=== PATIENT | male | born 1970 | race Caucasian/White ===

== ENCOUNTER → 2021-01-14 15:48 | Outpatient (CLI) | payer OTHER, SELFPAY ==
--- NOTE | ~2021-01-14 | XR_ITS ---
EXAMINATION: XR hand RT min 3V DATE: 01/14/2021 16:19 INDICATION: Displaced fracture of proximal phalanx of right index finger. TECHNIQUE: 3 views of right hand were obtained. COMPARISON: None. FINDINGS: Bone alignment is normal. No fracture. There is mild osteoarthritis of first carpometacarpa l joint, second metacarpophalangeal joint, and some of the interphalangeal joints. There is moderate osteoarthritis of third metacarpophalangeal joint and second distal interphalangeal joint. IMPRESSION: 1. Polyarticular osteoarthritis. Reviewed, dictated and finalized at location A.
== END ==
PROVIDERS: Visit Provider Plastic Surgery
DX: S62.610A Displaced fracture of proximal phalanx of right index finger, initial encounter for closed fracture (principal); M19.041 Primary osteoarthritis, right hand
CPT/HCPCS: 73130

== ENCOUNTER 2023-09-06 08:02 | Emergency (ER) | payer OTHER, SELFPAY ==
--- NOTE | ~2023-09-06 | XR_ITS ---
XR knee RT 3V DATE: 09/06/2023 08:50 INDICATION: Twisting injury 2 weeks ago; medial knee pain. TECHNIQUE: Dewitt and AP and lateral views COMPARISON: None FINDINGS: Bipartite patella. No fracture or dislocation or joint effusion. No periosteal reaction or bone destruction. There is mild loss of joint space and periarticular spurring at the medial compartment. There is mild periarticular spurring at the patellofemoral joint. Lateral compartment joint space is well preserve d. No radiopaque intra-articular loose body or chondrocalcinosis. IMPRESSION: Mild to moderate osteoarthritis at the medial and patellofemoral compartments Bipartite patella Reviewed, dictated and finalized at location D. HOUSE TENDER IMPRESSION: Mild to moderate osteoarthritis at the medial and patellofemoral co mpartments Bipartite patella
[2023-09-06 08:29] VITALS: BP 156/103; PULSE 101; RESP 18; TEMP 36.2; O2SAT 100
--- NOTE | 2023-09-06 08:50 | ED.LOWEXIN ---
HPI - Extremity Injury (Lower) General Chief Complaint: Extremity Injury, Lower Stated Complaint: rt knee pain Time Seen by Provider: 09/06/23 08:50 Source: patient, RN notes reviewed and old records reviewed Mode of arrival: ambulatory Limitations: no limitations History of Present Illness HPI Narrative: 53 year old male presents to [facility] care with complaints of right knee pain medial aspect which radiates to below his knee for the past 2-3 weeks duration. Patient reports that he has repetitive twisting motion to his knee at work and has noted swelling to right knee as day progresses with pressure sensation also to posterior knee. MD complaint: knee injury (right) Onset (ago): week(s) (2-3) Type of Injury: other (twisting type of motion) Severity scale (1-10): 2 Exacerbating factors: other (standing bending) Treatments prior to arrival: cold therapy Related Data Allergies Allergy/AdvReac Type Severity Reaction Status Date / Time No Known Allergies Allergy Verified 09/06/23 08:30 Review of Systems Review of Systems: CONSTITUTIONAL: Denies fever, chills, or sweats. EYES: Denies visual changes, redness, or discharge. ENT: Denies rhinorrhea, congestion, sore throat, or otalgia. CARDIOVASCULAR: Denies chest pain, palpitations, or edema. RESPIRATORY: Denies cough or dyspnea. GASTROINTESTINAL: Denies abdominal pain, nausea, vomiting, or diarrhea. GENITOURINARY: Denies dysuria or hematuria. SKIN: Denies rash or itching. MUSCULOSKELETAL: Denies back pain,positive for medial right knee pain with pain under knee cap, or myalgia. NEUROLOGIC: Denies headache, numbness, or weakness. PSYCHIATRIC: Denies anxiety or depression. All systems reviewed & are unremarkable except as noted in HPI and below PMFSH Past Medical History Medical History (Updated 09/06/23 @ 12:39 by Kira Zhao NP) Back pain Family History Family History Father Hypertension Cerebrovascular accident, Onset Age: 66 Malignant neoplasm of prostate, Onset Age: 65 Grandparent Family history of cardiovascular disease Sibling Family history of malignant neoplasm Social History Social History (Updated 09/06/23 @ 12:38 by Kira Zhao NP) Smoking status: Never smoker Alcohol intake: current Substance use: never Living arrangements: with family Gender identity (if verbalized by the patient): Male Comments At time of signature, agree with nursing past medical, surgical, social and family history. There is no relevant family history pertinent to the presenting complaint Exam Narrative: GENERAL: Well-appearing, well-nourished, and in no acute distress. HEAD: Normocephalic, atraumatic. EYES: PERRLA and EOMI. ENT: Nares clear, no rhinorrhea or epistaxis. Mucous membranes moist.TM's normal throat pink with no swelling NECK: Supple. no lymphadenopathy CHEST: Clear to auscultation. No respiratory distress.SAO2 100% on room air HEART: Regular rate and rhythm. No murmur heard. Normal peripheral pulses. ABDOMEN: Soft, nontender, nondistended, normal active bowel sounds. EXTREMITIES: Normal range of motion. No edema.Exception noted to right knee if pain upon palpation to medial aspect with some swelling noted, reports fullness feeling to posterior aspect of right knee with some radiation of pain to area below medial knee cap region, denies any tingling or numbness of right leg or foot, strong pedal pulse present. positive valgus test. SKIN: Warm, dry, no rash. NEURO: No focal deficits. Alert and oriented x3. Course Course Emergency Course: Patient is aware of diagnosis, understands and agrees to treatment plan.? Anticipatory guidance given.? Patient agrees to follow-up as directed and is aware of reasons to seek care at the emergency department. Portions of this record may have been created with voice recognition software Level of Care: Express Care Visit Vital Signs Vital signs
== END 2023-09-06 09:19 | disposition home or self-care (01) ==
PROVIDERS: Emergency Provider Registered Nurse
DX: M25.561 Pain in right knee (principal)
CPT/HCPCS: 73562; 99213; G0463

== ENCOUNTER → 2023-09-19 13:28 | Outpatient (CLI) | payer OTHER, SELFPAY ==
--- NOTE | ~2023-09-19 | MR_ITS ---
EXAMINATION: MR knee RT wo con DATE: 09/19/2023 14:02 INDICATION: Medial meniscal tear with medial right knee pain and swelling post twisting injury one mo nth prior. TECHNIQUE: Magnetic resonance imaging (MRI) of the right knee was performed without intravenous contr ast. Sequences included coronal PD-weighted FSE, coronal PD-weighted FS FSE, sagittal T2-weighted FS E, sagittal PD-weighted FS FSE and axial PD weighted fat saturated FSE. COMPARISON: None. FINDINGS: Medial compartment: Complex tear of the body and posterior horn of the medial meniscus. Extensive partial thickness carti zeenat loss with deep chondral fissuring and underlying cortical irregularity, small central subchondra l osteophytes related subarticular edema-like and cystlike changes along the anterior to posterior we ightbearing medial femoral condyle and with subarticular edema-like signal change along the medial ma rgin of the medial tibial plateau. Lateral compartment: Lateral meniscus is normal. Articular cartilage is normal. Patellofemoral compartment: There is a bipartite patella with fluid tracking between the main portion of the patella and a separa te ossicle comprising the lateral margin of the patella.. This extends more caudally than atypical de velopmental bipartite patella and differential would also include a chronic nonunited fracture. There is deep chondral fissuring with mild subarticular edema-like signal change along the patellar apical ridge. Additional full thickness chondral fissuring involving greater than 50% the cartilage thickne ss but without degenerative subchondral changes at the medial patellar facet. There is deep chondral ulceration at the lateral patellar facet extending along both sides of the sagittal oriented cleft be tween the 2 components of the patella. There is also linear fluid signal consistent with delaminating tear extending medially and laterally along the bone chondral interface along both sides of the sagi ttal oriented cleft between the patellar components. There is a deep chondral defect extending horizo ntally across the inferior aspect of the medial trochlea without underlying degenerative subchondral changes. Partial-thickness chondral fissure at the inferomedial aspect of the lateral facet. Ligaments and tendons: Anterior and posterior cruciate ligaments are normal. The medial collateral ligament and fibular pipo ateral ligament complex are normal. The extensor mechanism is normal. The visualized medial and later al hamstring tendons as well as the iliotibial band are normal. Fluid: Small right knee joint effusion. Irrigon 8 x 3 x 2 mm intermediate signal intensity filling defect wit hin a moderate-sized Morales's cyst suggesting a loose chondral fragment. There are couple additional m ore typical appearing <5 mm ovoid low signal intensity loose osteochondral bodies more caudally in th e Morales's cyst. No intra-articular loose osteochondral bodies identified. Osseous/other: No acute fracture or pathologic marrow replacing process. IMPRESSION: 1. Complex medial meniscal tear. 2. Mild to moderate osteoarthritis with extensive high-grade chondromalacia in the medial compartment . 3. 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 4. Mild patellofemoral osteoarthritis with high-grade patellar and moderate grade trochlear chondroma lacia. 5. Small right knee joint effusion and moderate-sized Morales's cyst, the latter with possible loose ch ondral fragment and a couple additional likely chronic loose osteochondral bodies. Reviewed, dictated and finalized at location B. O GAME ANIMATOR
== END ==
PROVIDERS: PCP Orthopaedic Surgery; Visit Provider Orthopaedic Surgery
DX: S83.241A Other tear of medial meniscus, current injury, right knee, initial encounter (principal); M17.11 Unilateral primary osteoarthritis, right knee; M94.261 Chondromalacia, right knee; M25.461 Effusion, right knee; M71.21 Synovial cyst of popliteal space [Baker], right knee; X50.0XXA Overexertion from strenuous movement or load, initial encounter
CPT/HCPCS: 73721

== ENCOUNTER 2023-09-28 13:55 | Outpatient (CLI) | payer OTHER, SELFPAY ==
--- NOTE | ~2023-09-28 | XR_ITS ---
EXAMINATION: XR knee RT min 4V DATE: 09/28/2023 14:14 INDICATION: Medial meniscus tear TECHNIQUE: Four views of the right knee were obtained. COMPARISON: 09/06/2023; MRI, 09/19/2023 FINDINGS: Alignment is normal. No fracture or osteochondral lesion. There is mild to moderate osteoar thritis of the medial compartment and mild osteoarthritis of the patellofemoral compartment. A bipart ite patella is again noted. No joint effusion/synovitis. Soft tissues are unremarkable. IMPRESSION: 1. Osteoarthritis without acute osseous abnormality. Reviewed, dictated and finalized at location B. NILE JUSTICE SPECIALIST
== END 2023-09-28 13:56 | disposition home or self-care (01) ==
PROVIDERS: PCP Orthopaedic Surgery; Visit Provider Orthopaedic Surgery
DX: M17.11 Unilateral primary osteoarthritis, right knee (principal); S83.241A Other tear of medial meniscus, current injury, right knee, initial encounter; X58.XXXA Exposure to other specified factors, initial encounter
CPT/HCPCS: 73564

== ENCOUNTER 2023-11-27 00:30 | Day surgery (SDC) | payer OTHER, SELFPAY ==
[2023-11-21 11:14] VITALS: BMI 28.7
--- NOTE | 2023-11-21 11:15 | PC.NURSE ---
Report to the Outpatient Waiting Room, entrance under the green pavilion located off [facility], at time _1130_ on date _[id number]_. Planned Procedure Time: _130pm_. Time changes happen often and if your time is changed the preop area will call you the afternoon before. - You and your visitor will be asked to self-screen and do not enter if you have any COVID symptoms. - A mask is optional within the hospital at this time. Patients may have clear liquids (water, carbonated beverages, clear teas, apple juice) until 3 hours prior to surgery with a maximum of 20 ounces. - No food from midnight until time of surgery Take the following medications with a SIP of water the morning of surgery: ___None DO NOT STOP ANY OF YOUR OTHER PRESCRIPTION MEDICATIONS PRIOR TO SURGERY ?EXCEPT THE FOLLOWING Medications to discontinue per physician __Has not used and instructed not to start using Diclofenac topical._ Date to take last dose Please no make-up, nail danish, hairspray, perfume, deodorant, or body powder the day of surgery. No jewelry (including any body piercings) or valuables the day of surgery, leave them at home. Please take a shower or bath the night before, or the morning of, surgery with an antibacterial soap. Wear comfortable, loose fitting clothing. - Jewelry must be removed prior to entering the operating room. Rings and piercings that are not removed may be cut off. - The hospital will not accept responsibility for valuables. - Please leave all valuables, including medications, at home the day of surgery. If you are going home after surgery, a licensed frontload driver must drive you home. - NO public transportation without another adult if you receive anesthesia. - We recommend that an adult stay with you for 24 hours following discharge. - We also recommend that you do not drive, make important decision, drink alcoholic beverages, or take any drugs that were not prescribed by your health care provider for at least 24 hours after your discharge time. Follow any additional instructions given to you from your surgeon. If you or anyone in your household have experienced Covid symptoms in the past week, please notify your surgeon or the nurse liaison at the phone number below for possible testing. Telephone instructions given to __Brett___and asked if any additional questions and then verbalized understanding. Patient advised to call surgeon office or pre surgery nurse liaison [phone] if any additional questions.
--- NOTE | 2023-11-27 09:34 | WPDHPUPDATE1 ---
History and Physical Update Update Date/Time: 11/27/23 09:34 History and Physical has been reviewed, including an updated exam of the patient. There are NO changes in the patient's condition. Risks, benefits, and alternatives have been discussed and questions answered. Patient agrees to proceed with procedure. Right knee arthroscopic partial medial meniscectomy.
[2023-11-27] MEDS: ACETAMINOPHEN 500 MG TABLET 1000 MG PO (11:16)
[2023-11-27] MEDS: LACTATED RINGERS 1,000 ML 30 ML IV CONT (11:23)
[2023-11-27] MEDS: KETOROLAC 15 MG/ML VIAL (*BKC) IV PUSH (11:32)
[2023-11-27 11:37] VITALS: BP 158/94; PULSE 71; RESP 16; TEMP 36.4; O2SAT 100
--- NOTE | 2023-11-27 12:32 | P.PNAN_ITS ---
Anes - Initial Pre Proc Eval Procedure: Operation Date: 11/27/23 13:30 Proposed Procedures p Right Knee Arthroscopic Partial Medial Meniscectomy - John Aguilar MD Date/Time: 11/27/23 12:32 Surgeon: John Aguilar MD Pre Op Diagnosis: right knee medial meniscus tear Patient Data Age: 53 Gender: M Height: 1.78 m Weight: 93.25 kg Last Vital Signs Temp 36.4 C 11/27/23 11:37 Pulse 71 11/27/23 11:37 Resp 16 11/27/23 11:37 BP 158/94 H 11/27/23 11:37 Pulse Ox 100 11/27/23 11:37 O2 Del Method Room Air 11/27/23 11:37 Allergies Allergy/AdvReac Type Severity Reaction Status Date / Time No Known Allergies Allergy Verified 11/21/23 11:51 Home Medications Medication Instructions Recorded Confirmed Type diclofenac sodium 1 % topical gel 2 g topical QID #100 grams 09/06/23 11/27/23 Rx (Aleve (diclofenac)) hydrocodone 5 mg-acetaminophen 325 1 - 2 tablet PO Q4-6H PRN pain #30 11/27/23 Rx mg tablet tabs Patient hx anesthesia problems: none Family hx anesthesia problems: none Results Review: All pre-operative results and documents have been reviewed as part of the pre- operative evaluation. [facility] Past Medical History Medical History Back pain Surgical History Surgical History History of fusion of cervical spine Family History Family History Father Hypertension Cerebrovascular accident, Onset Age: 66 Malignant neoplasm of prostate, Onset Age: 65 Grandparent Family history of cardiovascular disease Sibling Family history of malignant neoplasm Social History Social History Smoking status: Never smoker Alcohol intake: current Drinks per week: 6 Substance use: never Do You Feel Safe in your Home?: Yes Lack of Transportation: No Lack of Food: Never True Current Housing: I Have Housing Concerned About Future Housing: No Difficulty Paying Gas/Electric Bills: No Difficulty Paying for Meds: No Currently Unemployed: No Education: High School Diploma/GED Difficulty w/ Childcare or Family Care: No Living arrangements: with family Gender identity (if verbalized by the patient): Male Spiritual care concerns: No Anes - Eval Final PreProcedure Day of Procedure 11/27/23 12:32 Patient weight: overweight Heart: regular rate and rhythm Lungs: clear to auscultation Airway: Mallampati scale class II Neurological: alert and oriented Last oral intake: >/= 8 hours ASA classification: II Emergent: no Anesthetic plan: proceed Anesthesia type and monitoring: general LMA and standard monitoring Results Review: All pre-operative results and documents have been reviewed as part of the pre- operative evaluation. Informed Consent: The patient's anesthetic plan and its attendant risks and benefits were discussed with the patient/family/POA. Questions were solicited and answers provided to the satisfaction of the patient/family/POA.
[2023-11-27] MEDS: ceFAZolin 2 GM/D5W 50 ML 2 GM/50 ML BAG IVPB (12:49)
[2023-11-27] MEDS: BUPIVACAINE/EPINEPHRINE 0.5% 50 ML VIAL 20 ML INFILTRATE (13:30)
[2023-11-27 13:45] VITALS: BP 135/92; PULSE 81; RESP 15; TEMP 36.1; O2SAT 100
[2023-11-27 14:00] VITALS: BP 145/93; PULSE 66; RESP 14; O2SAT 100
--- NOTE | 2023-11-27 14:01 | P.OP_ITS ---
Procedure Note - Detailed Date of Procedure 11/27/23 Pre-op Diagnosis Right knee medial meniscus tear Post-op Diagnosis Same Procedure Performed Arthroscopic partial medial meniscectomy, right knee. Surgeon John Aguilar MD Anesthesia General Findings Complex posterior horn medial meniscus tear. Large chondral defect on the posterior aspect of the medial femoral condyle. Not amenable to microfracture due to thin peripheral cartilage and large uncontained defect size. Lateral compartment normal. Patella with minimal chondromalacia. ACL intact. Tibia with mild chondromalacia centrally but small focal areas exposed bone at the medial aspect of compartment under the meniscus and to a lesser extent at the posterior aspect of the compartment. Description of Procedure The patient was identified and the surgical site confirmed and signed in the pre operative holding area. Antibiotics were started per protocol, and the patient was brought to the operative room and transferred to the OR table. A general anesthetic was administered. Supine position with the operative lower extremity position in the leg galeas after placement of a well padded tourniquet. The leg support was lowered and the contralateral limb was supported with a soft bolster. The knee was prepped and draped in the usual sterile fashion. A time- out was performed. The portal sites were marked and infiltrated with 0.5% Marcaine 20 mL. The limb was exsanguinated and the tourniquet inflated to 300 mL Hg. Standard inferolateral and inferomedial portals were established. Inflow was obtained with the saline pump. The camera was introduced. Diagnostic inspection of the joint was accomplished. Extensive tearing of the posterior horn of the medial meniscus with unstable flaps. The meniscus was debrided with the arthroscopic shaver and punches until stable. Subtotal meniscectomy performed posteriorly. Tapering of the meniscus to the medial aspect was performed to ensure a stable rim. The radiofrequency probe was also used for further d?bridement. Gentle chondroplasty was performed on the posterior medial femoral condyle chondral defect. The edges were sealed with the radiofrequency probe. The bone was stable. The arthroscopic instruments were removed. The tourniquet released and wounds closed with subcutaneous 4-0 Monocryl absorbable suture. Steri strips and a sterile dressing were applied. A light elastic wrap was placed. The patient was extubated and brought to the recovery room in stable condition. Estimated Blood Loss 5 Drains No Complications No immediate complications Condition Stable Disposition PACU [facility] Billing Surgery - Charge Forward: Surgery Billing
[2023-11-27 14:15] VITALS: BP 133/92; PULSE 67; RESP 13; O2SAT 99
[2023-11-27 14:20] VITALS: BP 135/88; PULSE 72; RESP 14
[2023-11-27 14:50] VITALS: BP 133/75; PULSE 69; RESP 14
== END 2023-11-27 14:55 | disposition home or self-care (01) ==
PROVIDERS: Visit Provider Orthopaedic Surgery
PROC: (CPT 29870; principal; 2023-11-27 13:30)
DX: S83.231A Complex tear of medial meniscus, current injury, right knee, initial encounter (principal); M22.41 Chondromalacia patellae, right knee; X50.0XXA Overexertion from strenuous movement or load, initial encounter; Z98.1 Arthrodesis status
CPT/HCPCS: 29881; A9270; J0690; J1100; J1885; J2250; J2405; J2704; J3010; J7120

== ENCOUNTER 2024-09-11 11:40 | Outpatient (CLI) | payer OTHER, SELFPAY ==
--- OUTSIDE RECORDS SUMMARY | 2024-09-11 11:59 | XMS_ITS | Clinical Summary ---
Author Organization [facility] Address [address] [place] [id number] Care Team Providers Care Sand Buffer Name Role Phone Unavailable Primary Care Provider Unavailabl e Social History Tobacco Use Types Packs/Day Years Used Date Smoking Tobacco: Never Assessed Sex and Gender Information Value Date Recorded Sex Assigned at Not on file Legal Sex Male 5:04 PM CDT Gender Identity Not on file Sexual Orientation Not on file Plan of Treatment Health Maintenance Due Date Last Done Comments Colorectal Cancer Screening Colonoscopy (10 Years) 1969 Annual Physical 1972 Hepatitis C 1987 DTaP, Tdap and Td Vaccines ( 1 - Tdap) 1988 Hepatitis B Vaccines (1 of 3 - 19+ 3-dose series) 1988 Zoster Vaccines (1 of 2) 2019 COVID-19 Vaccine (2023-2 5 season) 2024 Influenza Adult (#1) 2024 Meningococcal B Vaccine Aged Out No l onger eligible based on patient's age to complete this topic Meningococcal Vaccine Aged Out No janelle dimitri eligible based on patient's age to complete this topic Pneumococcal Vaccine: Pediat rics (0 to 5 Years) and At-Risk Patients (6 to 64 Years) Aged Out No longer eligible b ased on patient's age to complete this topic RSV Immunizations Under 20 Months Aged Out No longer eligible based on patient's age to complete this topic
--- OUTSIDE RECORDS SUMMARY | 2024-09-11 11:59 | XMS_ITS | Referral Summary ---
Author Organization [email or web address] Address [address] [place] [address] Care Team Providers Care Weighmaster Name Role Phone Unavailable Primary Care Provider Unavailabl e Source Comments [email or web address],non-owned Affiliates and Associated Physician Practices is amultiple site organization consisting of ambulatory clinics and hospital sitesin [place], [place], [place] and [place]. This disclosure is being madepursuant to the Care Everywhere program and may not contain all information available regarding this patient. Last updated 18.[employer] Allergies No known active allergies Medications * Be aware that medications may not be up to date on this document. Alwaysverify current medications with the patient. Medication Sig Dispensed Refills Start Date End Date Status benzonatate (TESSALON) 200 MG capsule Take 1 capsule by mouth 3 times daily as needed for Cough 30 capsule 08/11/2019 Active Social History Tobacco Use Types Packs/Day Years Used Date Smoking Tobacco: Never Smokeless Tobacco: Never Sex and Gender Information Value Date Recorded Sex Assigned at Not on file Gender Identity Not on file Sexual Orientation Not on file Last Filed Vital Signs Vital Sign Reading Time Taken Comments Blood Pressure 130/82 08/11/2019 11:44 AM CHILD CARE CENTER ASSISTANT DIRECTOR Pulse 99 08/11/2019 11:25 AM CHILD CARE CENTER ASSISTANT DIRECTOR Temperature 37.1 C (98.7 F) 08/11/2019 11:25 AM CHILD CARE CENTER ASSISTANT DIRECTOR Respiratory Rate 16 08/11/2019 11:25 AM CHILD CARE CENTER ASSISTANT DIRECTOR Oxygen Saturation 96% 08/11/2019 11:25 AM CHILD CARE CENTER ASSISTANT DIRECTOR Inhaled Oxygen Concentration - - Weight 90.7 kg (200 lb) 08/11/2019 11:25 AM CHILD CARE CENTER ASSISTANT DIRECTOR Height 177.8 cm (5' 10 ) 08/11/2019 11:25 AM CHILD CARE CENTER ASSISTANT DIRECTOR Body Mass Index 28.7 08/11/2019 11:25 AM CHILD CARE CENTER ASSISTANT DIRECTOR Plan of Treatment Not on file
--- OUTSIDE RECORDS SUMMARY | 2024-09-11 11:59 | XMS_ITS | Patient Health Summary ---
Author Organization [facility] Address [address] [place] [address] Care Team Providers Care Carbon Sequestration Plant Operator Name Role Phone Unavailable Primary Care Provider Unavailabl e Note from [facility],non-owned Affiliates and Associated Physician Practices is amultiple site organization consisting of ambulatory clinics and hospital sitesin [place], [place], [place] and [place]. This disclosure is being madepursuant to the Care Everywhere program and may not contain all information available regarding this patient. Last updated 18.[employer] Allergies No known active allergies Medications * Be aware that medications may not be up to date on this document. Alwaysverify current medications with the patient. * benzonatate (TESSALON) 200 MG capsule(Started 08/11/2019) Take 1 capsule by mouth 3 times daily as needed for Cough Social History Tobacco Use Types Packs/Day Years Used Date Smoking Tobacco: Never Smokeless Tobacco: Never Sex and Gender Information Value Date Recorded Sex Assigned at Not on file Gender Identity Not on file Sexual Orientation Not on file Last Filed Vital Signs Vital Sign Reading Time Taken Comments Blood Pressure 130/82 08/11/2019 11:44 AM COOK BOX FILLER Pulse 99 08/11/2019 11:25 AM COOK BOX FILLER Temperature 37.1 C (98.7 F) 08/11/2019 11:25 AM COOK BOX FILLER Respiratory Rate 16 08/11/2019 11:25 AM COOK BOX FILLER Oxygen Saturation 96% 08/11/2019 11:25 AM COOK BOX FILLER Inhaled Oxygen Concentration - - Weight 90.7 kg (200 lb) 08/11/2019 11:25 AM COOK BOX FILLER Height 177.8 cm (5' 10 ) 08/11/2019 11:25 AM COOK BOX FILLER Body Mass Index 28.7 08/11/2019 11:25 AM COOK BOX FILLER
--- OUTSIDE RECORDS SUMMARY | 2024-09-11 11:59 | XMS_ITS | Clinical Summary ---
Author Organization [facility] Address [address] [place] [address] Care Team Providers Care Terminal Clerk Name Role Phone Unavailable Primary Care Provider Unavailabl e Source Comments [facility],non-owned Affiliates and Associated Physician Practices is amultiple site organization consisting of ambulatory clinics and hospital sitesin [place], [place], [place] and [place]. This disclosure is being madepursuant to the Care Everywhere program and may not contain all information available regarding this patient. Last updated 18.[employer] Allergies No known active allergies Medications * [...] Comments Blood Pressure 130/82 08/11/2019 11:44 AM DEBRANDER Pulse 99 08/11/2019 11:25 AM DEBRANDER Temperature 37.1 C (98.7 F) 08/11/2019 11:25 AM DEBRANDER Respiratory Rate 16 08/11/2019 11:25 AM DEBRANDER Oxygen Saturation 96% 08/11/2019 11:25 AM DEBRANDER Inhaled Oxygen Concentration - - Weight 90.7 kg (200 lb) 08/11/2019 11:25 AM DEBRANDER Height 177.8 cm (5' 10 ) 08/11/2019 11:25 AM DEBRANDER Body Mass Index 28.7 08/11/2019 11:25 AM DEBRANDER Plan of Treatment Health Maintenance Due Date Last Done Comments COLOGUARD (AGES 45-75) - COL ON CA SCREENING 1969 COLON MONITORING 1969 COLONOSCOPY - COLON CA SCREENING 1969 CT COLONOGRAPHY - COLON CA SCREENING 1969 Colorectal Cancer Screening 1969 FIT - COLON CA SCREENING 1969 FLEX SIG - COLON CA SCREENING 1969 LIPID TESTING 1969 HIV SCREENING 1984 HEPATITIS C SCREENING 05/28/1987 DTAP/TDAP/TD VACCINES (1 - Tdap) 1988 HEPATITIS B VACCINE (1 of 3 - 19+ 3-dose series) 1988 PNEUMOCOCCAL VACCINE 50+ (1 of 1 - PCV) 2019 ZOSTER VACCINE (1 of 2) 2019 SCREENING FOR DIABETES 08/11/2019 COVID-19 VACCINE (1 - 2023-2 5 season) 2024 INFLUENZA VACCINE (#1) 2024 DEPRESSION SCREENING 07/23/2024 HIB VACCINE Aged Out No longer eligi ble based on patient's age to complete this topic HPV VACCINE Aged Out No longer eligi ble based on patient's age to complete this topic MENINGOCOCCAL (Group B) VACCINE Aged Out No longer eligible based on patient's age to complete this topic MENINGOCOCCAL VACCINE Aged Out No janelle dimitri eligible based on patient's age to complete this topic PNEUMOCOCCAL VACCINE Aged Out No long er eligible based on patient's age to complete this topic
--- NOTE | 2024-09-11 12:41 | ECG_ITS ---
Test Date: 2024-09-11 12:49:34 Measurements Intervals [place] Rate: 68 P: 57 ME: 143 QRS: 12 QRSD: 108 T: 1 QT: 352 QTc: 377 Interpretive Statements SINUS RHYTHM DELAYED PRECORDIAL R/S TRANSITION BORDERLINE ST-T WAVE ABNORMALITY- INFERIOR LEADS BORDERLINE ECG No previous ECG available for comparison Electronically Signed On 09-11-2024 12:51:41 GATEKEEPER by Gary Denton D.O.
[2024-09-11 13:08] LABS: Basophils Percent Auto 0.7 % (0.2-1.2); Eosinophils Absolute Auto 0.1 K/mm3 (0-0.3); Eosinophils Percent Auto 2.2 % (0-4.4); Hematocrit 44.3 % (42.0-52.0); Hemoglobin 15.2 g/dL (14.0-18.0); Immature Granulocyte Absolute 0.01 K/mm3 (0.00-0.031); Immature Granulocyte Percent A 0.2 % (0-0.5); Lymphocytes Absolute Auto 1.24 K/mm3 (0.9-3.2); Lymphocytes Percent Auto 23.2 % (18.3-44.2); Mean Corpuscular HGB Conc 34.3 g/dl (32-36); Mean Corpuscular Hemoglobin 32.4 pg (26-34); Mean Corpuscular Volume 94.5 fl (80-100); Mean Platelet Volume 11.8 fl (7.4-10.4); Monocytes Absolute Auto 0.5 K/mm3 (0.1-0.6); Monocytes Percent Auto 10.1 % (2.6-8.5); Neutrophils Absolute Auto 3.4 K/mm3 (1.3-6.7); Neutrophils Percent Auto 63.6 % (45.5-73.1); Platelet Count Result 211 k/mm3 (150-375); Red Blood Count 4.69 M/mm3 (4.6-6.20); Red Cell Distribution Width 11.9 % (11.5-14.5); White Blood Count 5.3 K/mm3 (4.5-10.0)
== END 2024-09-11 11:41 | disposition home or self-care (01) ==
PROVIDERS: Visit Provider Orthopaedic Surgery
DX: Z01.818 Encounter for other preprocedural examination (principal); M17.11 Unilateral primary osteoarthritis, right knee; R94.31 Abnormal electrocardiogram [ECG] [EKG]
CPT/HCPCS: 36415; 85025; 93005

== ENCOUNTER 2024-12-01 11:55 | Outpatient (CLI) | payer OTHER, SELFPAY ==
--- NOTE | ~2024-12-01 | US_ITS ---
EXAMINATION: US venous doppler [facility] DATE: 12/01/2024 12:41 INDICATION: Right lower limb pain and swelling TECHNIQUE: Grayscale ultrasound images without and with compression and Doppler ultrasound images of the bilateral lower extremity veins were obtained. COMPARISON: None. FINDINGS: The visualized portions of right common femoral vein, profunda (deep) femoral vein, femoral vein, pop liteal vein, posterior tibial veins, peroneal veins, gastrocnemius vein and greater saphenous vein ou tflow are patent. The visualized portions of left common femoral vein, profunda femoral vein, femoral vein, popliteal v ein, posterior tibial veins, peroneal veins, gastrocnemius vein and greater saphenous vein outflow ar e patent. IMPRESSION: 1. No deep venous thrombosis in either lower limb. Reviewed, dictated and finalized at location A.
--- OUTSIDE RECORDS SUMMARY | 2024-12-01 12:01 | XMS_ITS | Clinical Summary ---
Author Organization [facility] Address [address] [place] [address] Care Team Providers Care Porcelain Mixer Name Role Phone Unavailable Primary Care Provider Unavailabl e Source Comments [facility],non-owned Affiliates and Associated Physician Practices is amultiple site organization consisting of ambulatory clinics and hospital sitesin [place], [place], [place] and [place]. This disclosure is being madepursuant to the Care Everywhere program and may not contain all information available regarding this patient. Last updated 18.[employer] Allergies No known active allergies Medications * Be aware that medications may not be up to date on this document. Alwaysverify current medications with the patient. benzonatate (TESSALON) 200 MG capsule Take 1 capsule by mouth 3 times daily as needed for Cough 30 capsule 08/11/2019 Active Social History Tobacco Use Types Packs/Day Years Used Date Smoking Tobacco: Never Smokeless Tobacco: Never Sex and Gender Information Value Date Recorded Sex Assigned at Not on file Legal Sex Male 8:34 AM MAINFRAME ARCHITECT Gender Identity Not on file Sexual Orientation Not on file Last Filed Vital Signs Vital Sign Reading Time Taken Comments Blood Pressure 130/82 08/11/2019 11:44 AM MAINFRAME ARCHITECT Pulse 99 08/11/2019 11:25 AM MAINFRAME ARCHITECT Temperature 37.1 C (98.7 F) 08/11/2019 11:25 AM MAINFRAME ARCHITECT Respiratory Rate 16 08/11/2019 11:25 AM MAINFRAME ARCHITECT Oxygen Saturation 96% 08/11/2019 11:25 AM MAINFRAME ARCHITECT Inhaled Oxygen Concentration - - Weight 90.7 kg (200 lb) 08/11/2019 11:25 AM MAINFRAME ARCHITECT Height 177.8 cm (5' 10 ) 08/11/2019 11:25 AM MAINFRAME ARCHITECT Body Mass Index 28.7 08/11/2019 11:25 AM MAINFRAME ARCHITECT Plan of Treatment Health Maintenance Due Date [...] 2019 SCREENING FOR DIABETES 08/11/2019 COVID-19 VACCINE ( - 2023-2 5 season) 2024 DEPRESSION SCREENING 07/23/2024 INFLUENZA VACCINE (Season Ended) 2025 HIB VACCINE Aged Out No longer eligi ble based on patient's age to complete this topic HPV VACCINE Aged Out No longer eligi ble based on patient's age to complete this topic MENINGOCOCCAL (Group B) VACC INE SHARED DECISION-MAKING Aged Out No longer eligibl e based on patient's age to complete this topic MENINGOCOCCAL GROUPS A/C/Y/W VACCINE Aged Out No longer eligible b ased on patient's age to complete this topic Insurance
--- OUTSIDE RECORDS SUMMARY | 2024-12-01 12:01 | XMS_ITS | Clinical Summary ---
Author Organization [facility] Address [address] [place] [address] Care Team Providers Care Fisheries Director Name Role Phone Unavailable Primary Care [...] of 3 - 19+ 3-dose series) 1988 Pneumococcal Vaccine: 50+ Ye ars (1 of 1 - PCV) 2019 Zoster Vaccines (1 of 2) 2019 COVID-19 Vaccine (2023-2 5 season) 2024 Meningococcal B Vaccine Aged Out No l onger eligible based on patient's age to complete this topic Meningococcal Vaccine Aged Out No janelle dimitri eligible based on patient's age to complete this topic RSV Immunizations Under 20 Months Aged Out No longer eligible based on patient's age to complete this topic
== END 2024-12-01 11:56 | disposition home or self-care (01) ==
PROVIDERS: PCP Nurse Practitioner; Visit Provider Nurse Practitioner
DX: M79.604 Pain in right leg (principal); M79.605 Pain in left leg
CPT/HCPCS: 93970

== ENCOUNTER 2024-12-24 10:00 | Outpatient (CLI) | payer OTHER, SELFPAY ==
--- OUTSIDE RECORDS SUMMARY | 2024-12-24 10:14 | XMS_ITS | Clinical Summary ---
Author Organization [facility] Address [address] [place] [address] Care Team Providers Care Shopper'S Aide Name Role Phone Unavailable Primary Care Provider Unavailabl e Source Comments [facility],non-owned Affiliates and Associated Physician Practices is amultiple site organization consisting of ambulatory clinics and hospital sitesin [place], [place], [place] and [place]. This disclosure is being madepursuant to the Care Everywhere program and may not contain all information available regarding this patient. Last updated 18.[employer] Allergies No known active allergies Medications * [...] on file Legal Sex Male 8:34 AM DIETITIAN ASSISTANT Gender Identity Not on file Sexual Orientation Not on file Last Filed Vital Signs Vital Sign Reading Time Taken Comments Blood Pressure 130/82 08/11/2019 11:44 AM DIETITIAN ASSISTANT Pulse 99 08/11/2019 11:25 AM DIETITIAN ASSISTANT Temperature 37.1 C (98.7 F) 08/11/2019 11:25 AM DIETITIAN ASSISTANT Respiratory Rate 16 08/11/2019 11:25 AM DIETITIAN ASSISTANT Oxygen Saturation 96% 08/11/2019 11:25 AM DIETITIAN ASSISTANT Inhaled Oxygen Concentration - - Weight 90.7 kg (200 lb) 08/11/2019 11:25 AM DIETITIAN ASSISTANT Height 177.8 cm (5' 10) 08/11/2019 11:25 AM DIETITIAN ASSISTANT Body Mass Index 28.7 08/11/2019 11:25 AM DIETITIAN ASSISTANT Plan of Treatment Health Maintenance Due Date [...]
[2024-12-24 10:37] LABS: Basophils Percent Auto 0.8 % (0.2-1.2); Eosinophils Absolute Auto 0.1 K/mm3 (0-0.3); Eosinophils Percent Auto 2.4 % (0-4.4); Hematocrit 40.5 % (42.0-52.0); Hemoglobin 13.9 g/dL (14.0-18.0); Immature Granulocyte Absolute 0.01 K/mm3 (0.00-0.031); Immature Granulocyte Percent A 0.3 % (0-0.5); Lymphocytes Absolute Auto 1.01 K/mm3 (0.9-3.2); Lymphocytes Percent Auto 26.5 % (18.3-44.2); Mean Corpuscular HGB Conc 34.3 g/dl (32-36); Mean Corpuscular Hemoglobin 32.3 pg (26-34); Monocytes Absolute Auto 0.4 K/mm3 (0.1-0.6); Monocytes Percent Auto 11.3 % (2.6-8.5); Neutrophils Absolute Auto 2.2 K/mm3 (1.3-6.7); Neutrophils Percent Auto 58.7 % (45.5-73.1); Platelet Count Result 173 k/mm3 (150-375); Red Blood Count 4.31 M/mm3 (4.6-6.20); Red Cell Distribution Width 12.7 % (11.5-14.5); White Blood Count 3.8 K/mm3 (4.5-10.0)
== END 2024-12-24 10:01 | disposition home or self-care (01) ==
LOC: ANHSURGERY 10:02
PROVIDERS: PCP Nurse Practitioner; Visit Provider Orthopaedic Surgery
DX: Z01.812 Encounter for preprocedural laboratory examination (principal); M17.11 Unilateral primary osteoarthritis, right knee
CPT/HCPCS: 36415; 85025

== ENCOUNTER 2024-12-27 10:17 | Outpatient (CLI) | payer OTHER, SELFPAY ==
--- OUTSIDE RECORDS SUMMARY | 2024-12-27 10:21 | XMS_ITS | Clinical Summary ---
Author Organization [facility] Address [address] [address] Care Team Providers Care Cat Scan Technologist Name Role Phone Unavailable Primary Care Provider Unavailabl e Source Comments [facility] [facility],non-owned Affiliates and Associated Physician Practices is amultiple site organization consisting of ambulatory clinics and hospital sitesin [place], [place], [place] and [place]. This disclosure is being madepursuant to the Care Everywhere program and may not contain all information available regarding this patient. Last updated 18.[employer] Allergies No known active allergies Medications * [...] on file Legal Sex Male 8:34 AM NOTCHED BLADE LOADER Gender Identity Not on file Sexual Orientation Not on file Last Filed Vital Signs Vital Sign Reading Time Taken Comments Blood Pressure 130/82 08/11/2019 11:44 AM NOTCHED BLADE LOADER Pulse 99 08/11/2019 11:25 AM NOTCHED BLADE LOADER Temperature 37.1 C (98.7 F) 08/11/2019 11:25 AM NOTCHED BLADE LOADER Respiratory Rate 16 08/11/2019 11:25 AM NOTCHED BLADE LOADER Oxygen Saturation 96% 08/11/2019 11:25 AM NOTCHED BLADE LOADER Inhaled Oxygen Concentration - - Weight 90.7 kg (200 lb) 08/11/2019 11:25 AM NOTCHED BLADE LOADER Height 177.8 cm (5' 10) 08/11/2019 11:25 AM NOTCHED BLADE LOADER Body Mass Index 28.7 08/11/2019 11:25 AM NOTCHED BLADE LOADER Plan of Treatment Health Maintenance Due Date [...]
[2024-12-27 10:31] LABS: Hematocrit 40.6 % (42.0-52.0); Hemoglobin 14.1 g/dL (14.0-18.0); Mean Corpuscular HGB Conc 34.7 g/dl (32-36); Mean Corpuscular Hemoglobin 32.3 pg (26-34); Mean Corpuscular Volume 93.1 fl (80-100); Mean Platelet Volume 10.7 fl (7.4-10.4); Platelet Count Result 195 k/mm3 (150-375); Red Blood Count 4.36 M/mm3 (4.6-6.20); Red Cell Distribution Width 12.8 % (11.5-14.5); White Blood Count 3.9 K/mm3 (4.5-10.0)
== END 2024-12-27 10:18 | disposition home or self-care (01) ==
LOC: ANHLAB 10:20
PROVIDERS: PCP Nurse Practitioner; Visit Provider Nurse Practitioner
DX: D64.9 Anemia, unspecified (principal); Z76.89 Persons encountering health services in other specified circumstances
CPT/HCPCS: 36415; 85027

== ENCOUNTER 2024-12-30 01:06 | Day surgery (SDC) | payer OTHER, SELFPAY ==
[2024-09-11 12:07] VITALS: BP 162/103; PULSE 78; RESP 16; TEMP 36.6; O2SAT 99; BMI 31.1
--- NOTE | 2024-09-11 12:17 | PC.NURSE ---
Report to the Outpatient Waiting Room, entrance under the green pavilion located off [facility], at time ___6:00AM____ on date ___09/30/24____. Planned Procedure Time: __7:30AM .? Time changes happen often and if your time is changed the preop area will call you the afternoon before. - You and your visitor will be asked to self-screen and do not enter if you have any COVID symptoms. Please call surgeon if you need to reschedule. - A mask is optional within the hospital at this time. Patients may have clear liquids (water, carbonated beverages, clear teas, apple juice) until 3 hours prior to surgery with a maximum of 20 ounces. - No food from midnight until time of surgery and no smoking, or chewing tobacco (or any form of nicotine). No chewing gum, candy or mints. Take only the following medications with a SIP of water on the morning of surgery: NONE DO NOT STOP ANY OF YOUR OTHER PRESCRIPTION MEDICATIONS PRIOR TO SURGERY EXCEPT THE FOLLOWING Hold all vitamins and supplements for 3 days per anesthesiologist. Medications to discontinue per physician NONE Date to take last dose Please no make-up, nail georgian, hairspray, perfume, deodorant, or body powder the day of surgery.? No jewelry (including any body piercings) or valuables the day of surgery, leave them at home.? Please take a shower or bath the night before, or the morning of, surgery with an antibacterial soap.? Wear comfortable, loose fitting clothing.? - Jewelry must be removed prior to entering the operating room.? Rings and piercings that are not removed may be cut off. - The hospital will not accept responsibility for valuables.? - Please leave all valuables, including medications, at home the day of surgery. If you are going home after surgery, a licensed rail car driver must drive you home.? - NO public transportation without another adult if you receive anesthesia. - We recommend that an adult stay with you for 24 hours following discharge. - We also recommend that you do not drive, make important decision, drink alcoholic beverages, or take any drugs that were not prescribed by your health care provider for at least 24 hours after your discharge time. Follow any additional instructions given to you from your surgeon. Telephone instructions given to ____PATIENT and asked if any additional questions and then verbalized understanding. Patient advised to call surgeon office or pre surgery nurse liaison [phone] if any additional questions.
[2024-09-11 12:38] VITALS: BP 157/97
[2024-09-11 12:39] VITALS: BP 168/108
--- NOTE | 2024-09-11 12:42 | PC.NURSE ---
PT'S BP IS ELEVATED. DENIES HEADACHE, CHEST PAIN, SHORTNESS OF BREATH. STATES THAT HE DOES NOT HAVE A PRIMARY DOCTOR, HIS RETIRED. INSTR TO GO TO ER IF HE HAS ANY CARDIAC SYMPTOMS, HE RELAYS UNDERTANDING.
--- OUTSIDE RECORDS SUMMARY | 2024-09-30 00:17 | XMS_ITS | Referral Summary ---
Author Organization [facility] Address [address] [place] [address] Care Team Providers Care Entertainment Director Name Role Phone Unavailable Primary Care Provider Unavailabl e Source Comments [facility],non-owned Affiliates and Associated Physician Practices is amultiple site organization consisting of ambulatory clinics and hospital sitesin [place], [place], [place] and [place]. This disclosure is being madepursuant to the Care Everywhere program and may not contain all information available regarding this patient. Last updated 18.[employer] Allergies No known active allergies Medications * [...] Comments Blood Pressure 130/82 08/11/2019 11:44 AM RECLAMATION ENGINEER Pulse 99 08/11/2019 11:25 AM RECLAMATION ENGINEER Temperature 37.1 C (98.7 F) 08/11/2019 11:25 AM RECLAMATION ENGINEER Respiratory Rate 16 08/11/2019 11:25 AM RECLAMATION ENGINEER Oxygen Saturation 96% 08/11/2019 11:25 AM RECLAMATION ENGINEER Inhaled Oxygen Concentration - - Weight 90.7 kg (200 lb) 08/11/2019 11:25 AM RECLAMATION ENGINEER Height 177.8 cm (5' 10) 08/11/2019 11:25 AM RECLAMATION ENGINEER Body Mass Index 28.7 08/11/2019 11:25 AM RECLAMATION ENGINEER Plan of Treatment Not on file
--- OUTSIDE RECORDS SUMMARY | 2024-09-30 00:17 | XMS_ITS | Clinical Summary ---
Author Organization [facility] Address [address] [place] [address] Care Team Providers Care Patrol Inspector Name Role Phone Unavailable Primary Care Provider [...]
--- OUTSIDE RECORDS SUMMARY | 2024-09-30 00:17 | XMS_ITS | Clinical Summary ---
Author Organization [facility] Address [address] [place] [address] Care Team Providers Care Director Supply Name Role Phone Unavailable Primary Care Provider Unavailabl e Source Comments [facility],non-owned Affiliates and Associated Physician Practices is amultiple site organization consisting of ambulatory clinics and hospital sitesin [place], [place], [place] and [place]. This disclosure is being madepursuant to the Care Everywhere program and may not contain all information available regarding this patient. Last updated 18.[employer] Allergies No known active allergies Medications * [...] Comments Blood Pressure 130/82 08/11/2019 11:44 AM POPULATION GENETICIST Pulse 99 08/11/2019 11:25 AM POPULATION GENETICIST Temperature 37.1 C (98.7 F) 08/11/2019 11:25 AM POPULATION GENETICIST Respiratory Rate 16 08/11/2019 11:25 AM POPULATION GENETICIST Oxygen Saturation 96% 08/11/2019 11:25 AM POPULATION GENETICIST Inhaled Oxygen Concentration - - Weight 90.7 kg (200 lb) 08/11/2019 11:25 AM POPULATION GENETICIST Height 177.8 cm (5' 10) 08/11/2019 11:25 AM POPULATION GENETICIST Body Mass Index 28.7 08/11/2019 11:25 AM POPULATION GENETICIST Plan of Treatment Health Maintenance Due Date [...]
--- OUTSIDE RECORDS SUMMARY | 2024-09-30 00:17 | XMS_ITS | Patient Health Summary ---
Author Organization [facility] Address [address] [place] [address] Care Team Providers Care Mask Designer Name Role Phone Unavailable Primary Care Provider Unavailabl e Note from [facility],non-owned Affiliates and Associated Physician Practices is amultiple site organization consisting of ambulatory clinics and hospital sitesin [place], [place], [place] and [place]. This disclosure is being madepursuant to the Care Everywhere program and may not contain all information available regarding this patient. Last updated 04/12/18.[employer] Allergies No known active allergies Medications * [...] Comments Blood Pressure 130/82 08/11/2019 11:44 AM WAGON DRILLER Pulse 99 08/11/2019 11:25 AM WAGON DRILLER Temperature 37.1 C (98.7 F) 08/11/2019 11:25 AM WAGON DRILLER Respiratory Rate 16 08/11/2019 11:25 AM WAGON DRILLER Oxygen Saturation 96% 08/11/2019 11:25 AM WAGON DRILLER Inhaled Oxygen Concentration - - Weight 90.7 kg (200 lb) 08/11/2019 11:25 AM WAGON DRILLER Height 177.8 cm (5' 10) 08/11/2019 11:25 AM WAGON DRILLER Body Mass Index 28.7 08/11/2019 11:25 AM WAGON DRILLER
[2024-12-10 08:25] VITALS: BMI 29.4
--- NOTE | 2024-12-10 10:03 | PC.NURSE ---
Report to the Outpatient Waiting Room, entrance under the green pavilion located off [facility], at time __6:00AM on date ___12/30/24____. Planned Procedure Time: ___7:30AM .? Time changes happen often and if your time is changed the preop area will call you the afternoon before. - You and your visitor will be asked to self-screen and do not enter if you have any COVID symptoms. Please call surgeon if you need to reschedule. - A mask is optional within the hospital at this time. Patients may have clear liquids (water, carbonated beverages, clear teas, apple juice) until 3 hours prior to surgery (4:30AM) with a maximum of 20 ounces. - No food from midnight until time of surgery and no smoking, or chewing tobacco (or any form of nicotine). No chewing gum, candy or mints. Take only the following medications with a SIP of water on the morning of surgery: ____NONE DO NOT STOP ANY OF YOUR OTHER PRESCRIPTION MEDICATIONS PRIOR TO SURGERY EXCEPT THE FOLLOWING Hold all vitamins and supplements for 3 days per anesthesiologist. Medications to discontinue per physician NONE Date to take last dose Please no make-up, nail tamazight, hairspray, perfume, deodorant, or body powder the day of surgery.? No jewelry (including any body piercings) or valuables the day of surgery, leave them at home.? Please take a shower or bath the night before, or the morning of, surgery with an antibacterial soap.? Wear comfortable, loose fitting clothing.? - Jewelry must be removed prior to entering the operating room.? Rings and piercings that are not removed may be cut off. - The hospital will not accept responsibility for valuables.? - Please leave all valuables, including medications, at home the day of surgery. If you are going home after surgery, a licensed funeral car driver must drive you home.? - NO public transportation without another adult if you receive anesthesia. - We recommend that an adult stay with you for 24 hours following discharge. - We also recommend that you do not drive, make important decision, drink alcoholic beverages, or take any drugs that were not prescribed by your health care provider for at least 24 hours after your discharge time. Follow any additional instructions given to you from your surgeon. Telephone instructions given to PATIENT and asked if any additional questions and then verbalized understanding. Patient advised to call surgeon office or pre surgery nurse liaison [phone] if any additional questions.
[2024-12-30] VITALS (13 sets, daily range): BP systolic 118–163; BP diastolic 81–105; PULSE 59–95; RESP 10–14; TEMP 36.2–36.3; O2SAT 96–100
--- NOTE | ~2024-12-30 | XR_ITS ---
EXAMINATION: KNEE ONE/TWO VIEW-RIGHT DATE: 12/30/2024 09:35 INDICATION: Postoperative evaluation following right knee medial unicompartmental arthroplasty TECHNIQUE: Anteroposterior and lateral views of the right knee were obtained. COMPARISON: None. FINDINGS: Right knee medial unicompartmental arthroplasty appears well seated and in near anatomic alignment. No fractures identified. Small amount of expected postoperative subcutaneous and intra-articular gas. IMPRESSION: 1. Right knee medial unicompartmental arthroplasty, negative for postoperative purposes. Reviewed, dictated and finalized at location A.
--- OUTSIDE RECORDS SUMMARY | 2024-12-30 01:08 | XMS_ITS | Clinical Summary ---
Author Organization [facility] Address [address] [place] [address] Care Team Providers Care Wheat Inspector Name Role Phone Unavailable Primary Care Provider Unavailabl e Source Comments [facility],non-owned Affiliates and Associated Physician Practices is amultiple site organization consisting of ambulatory clinics and hospital sitesin [place], [place], [place] and [place]. This disclosure is being madepursuant to the Care Everywhere program and may not contain all information available regarding this patient. Last updated 18.[employer] Allergies No known active allergies Medications * [...] on file Legal Sex Male 8:34 AM PURCHASING DIRECTOR Gender Identity Not on file Sexual Orientation Not on file Last Filed Vital Signs Vital Sign Reading Time Taken Comments Blood Pressure 130/82 08/11/2019 11:44 AM PURCHASING DIRECTOR Pulse 99 08/11/2019 11:25 AM PURCHASING DIRECTOR Temperature 37.1 C (98.7 F) 08/11/2019 11:25 AM PURCHASING DIRECTOR Respiratory Rate 16 08/11/2019 11:25 AM PURCHASING DIRECTOR Oxygen Saturation 96% 08/11/2019 11:25 AM PURCHASING DIRECTOR Inhaled Oxygen Concentration - - Weight 90.7 kg (200 lb) 08/11/2019 11:25 AM PURCHASING DIRECTOR Height 177.8 cm (5' 10) 08/11/2019 11:25 AM PURCHASING DIRECTOR Body Mass Index 28.7 08/11/2019 11:25 AM PURCHASING DIRECTOR Plan of Treatment Health Maintenance Due Date [...]
[2024-12-30] MEDS: LACTATED RINGERS 1,000 ML 30 ML IV CONT (06:50)
[2024-12-30] MEDS: ACETAMINOPHEN 500 MG TABLET 1000 MG PO (06:50)
[2024-12-30] MEDS: TRANEXAMIC ACID 1,000MG/ISO100 1,000 MG/100 ML BAG 200 MG IVPB (06:50)
--- NOTE | 2024-12-30 07:12 | WPDHPUPDATE1 ---
History and Physical Update Update Date/Time: 12/30/24 07:12 History and Physical has been reviewed, including an updated exam of the patient. There are NO changes in the patient's condition. Risks, benefits, and alternatives have been discussed and questions answered. Patient agrees to proceed with procedure.
--- NOTE | 2024-12-30 07:12 | WPDANESEPPF ---
Anes - Initial Pre Proc Eval Procedure: Operation Date: 12/30/24 07:30 Proposed Procedures p Right Partial Knee Arthroplasty - John Aguilar MD Date/Time: 12/30/24 07:12 Surgeon: John Aguilar MD Pre Op Diagnosis: right knee oa Patient Data Age: 54 Gender: M Height: 1.78 m Weight: 93 kg Last Vital Signs Temp 36.6 C 09/11/24 12:07 Pulse 78 09/11/24 12:07 Resp 16 09/11/24 12:07 BP 168/108 H 09/11/24 12:39 Pulse Ox 99 09/11/24 12:07 O2 Del Method Room Air 09/11/24 12:07 Allergies Allergy/AdvReac Type Severity Reaction Status Date / Time No Known Allergies Allergy Verified 12/25/24 14:28 Home Medications ?Medication ?Instructions ?Recorded ?Confirmed ?Type lisinopril 40 mg tablet 40 mg PO DAILY #90 tabs 10/06/24 12/25/24 Rx metoprolol succinate 25 mg 12.5 mg (1/2 x 25 mg) PO DAILY #45 12/22/24 12/25/24 Rx tablet,extended release 24 hr tabs Patient hx anesthesia problems: none Family hx anesthesia problems: none Results Review: All pre-operative results and documents have been reviewed as part of the pre-operative evaluation. [facility] Past Medical History Medical History Displacement of cervical intervertebral disc without myelopathy Back pain Surgical History Surgical History Status post medial meniscectomy of right knee (~11/27/23) 2023 History of fusion of cervical spine 2010 2011 Family History Family History Father Hypertension Cerebrovascular accident, Onset Age: 66 Malignant neoplasm of prostate, Onset Age: 65 Grandparent Family history of cardiovascular disease Sibling Family history of malignant neoplasm Social History Social History Smoking status: Never smoker Alcohol intake: current Drinks per week: 6 Substance use: never Do You Feel Safe in your Home?: Yes Lack of Transportation: No Lack of Food: Never True Current Housing: I Have Housing Concerned About Future Housing: No Difficulty Paying Gas/Electric Bills: No Difficulty Paying for Meds: No Currently Unemployed: No Education: High School Diploma/GED Difficulty w/ Childcare or Family Care: No Living arrangements: with family Additional living arrangements comments: Gender identity (if verbalized by the patient): Male Spiritual care concerns: No Anes - Eval Final PreProcedure Day of Procedure 12/30/24 07:12 Patient weight: overweight Heart: regular rate and rhythm Lungs: clear to auscultation Airway: Mallampati scale class II Neurological: alert and oriented Last oral intake: >/= 8 hours ASA classification: II Emergent: no Anesthetic plan: proceed Anesthesia type and monitoring: general LMA and standard monitoring Results Review: All pre-operative results and documents have been reviewed as part of the pre-operative evaluation. Informed Consent: The patient's anesthetic plan and its attendant risks and benefits were discussed with the patient/family/POA. Questions were solicited and answers provided to the satisfaction of the patient/family/POA.
[2024-12-30] MEDS: ceFAZolin 2 GM/D5W 50 ML 2 GM/50 ML BAG IVPB (07:16)
[2024-12-30] MEDS: SODIUM CHLORIDE 0.9% IV 37.7 ML, MORPHINE SULFATE INJ (*CRX) 2 MG, ROPivacaine HCL 1% 2... INFILTRATE (07:48)
[2024-12-30] MEDS: TRANEXAMIC ACID 1,000 MG/10 ML AMPUL 1000 MG IV PUSH (08:37)
--- NOTE | 2024-12-30 08:55 | P.OP_ITS ---
Procedure Note - Detailed Date of Procedure 12/30/24 Pre-op Diagnosis Right knee degenerative arthritis, medial compartment. Post-op Diagnosis Same Procedure Performed Partial knee arthroplasty, right knee, medial compartment. Surgeon John Aguilar MD Anesthesia General Description of Procedure The patient was given a general anesthetic. Preoperative antibiotics were given. The knee was prepped and draped in the usual sterile fashion. A longitudinal incision was created along the medial aspect of the patellar tendon. A minimally invasive optimized mid vastus approach was completed. No medial release was taken. The external alignment guide was used to cut the tibia with anatomic posterior slope. A 4 millimeter resection was taken. The spacer block technique was utilized to measure flexion and extension gaps after the osteophytes were removed. The difference was used to calculate the distal resection. The distal cutting block was utilized to cut the distal femur. The AP and chamfer block was utilized for this last cuts. The femur and tibia were sized. Range of motion and gap balancing was assessed. This was tested with the 1.5 millimeter spacer. The bony surfaces were cleaned with lavaged. Lug holes were drilled. The real components were cemented into position. Excess cement was carefully removed. The tourniquet was released. Meticulous hemostasis was maintained. The wound was closed with interrupted 1 Vicryl suture followed by a running 0 Quill suture and 2-0 Quill suture. Steri-Strips are placed in the skin the patient was extubated and brought to recovery room in stable condition. There were no complications. Implants [employer] system femur size 4, tibia size 4, 8 mm polyethylene insert. One batch [employer] antibiotic cement. Estimated Blood Loss 20 Drains No Pathology None sent Complications No immediate complications Condition Stable Disposition PACU [facility] Billing Surgery - Charge Forward: Surgery Billing
[2024-12-30] MEDS: LABETALOL HCL INJ 100 MG/20 ML VIAL IV PUSH (09:12)
== END 2024-12-30 13:30 | disposition home or self-care (01) ==
PROVIDERS: PCP Nurse Practitioner; Visit Provider Orthopaedic Surgery
PROC: (CPT 27446; principal; 2024-12-30 07:30)
DX: M17.11 Unilateral primary osteoarthritis, right knee (principal)
CPT/HCPCS: 27446; 73560; 97161; 97165; A9270; C1713; C1776; J0171; J0690; J1100; J1171; J1200; J1885; J2250; J2270; J2405; J2704; J2795; J7120

== ENCOUNTER 2025-03-18 08:10 | Outpatient (CLI) | payer OTHER, SELFPAY ==
--- OUTSIDE RECORDS SUMMARY | 2025-03-18 08:13 | XMS_ITS | Clinical Summary ---
Author Organization [facility] Address [address] [place] [address] Care Team Providers Care Education Teacher Name Role Phone Unavailable Primary Care Provider Unavailabl e Source Comments [facility],non-owned Affiliates and Associated Physician Practices is amultiple site organization consisting of ambulatory clinics and hospital sitesin [place], [place], [place] and [place]. This disclosure is being madepursuant to the Care Everywhere program and may not contain all information available regarding this patient. Last updated [email or web address] Allergies No known active allergies Medications * [...] on file Legal Sex Male 8:34 AM [employer] Gender Identity Not on file Sexual Orientation Not on file Last Filed Vital Signs Vital Sign Reading Time Taken Comments Blood Pressure 130/82 08/11/2019 11:44 AM [employer] Pulse 99 08/11/2019 11:25 AM [employer] Temperature 37.1 C (98.7 F) 08/11/2019 11:25 AM [employer] Respiratory Rate 16 08/11/2019 11:25 AM [employer]OUR[employer] Oxygen Saturation 96% 08/11/2019 11:25 AM [employer] Inhaled Oxygen Concentration - - Weight 90.7 kg (200 lb) 08/11/2019 11:25 AM [employer] Height 177.8 cm (5' 10) 08/11/2019 11:25 AM [employer] Body Mass Index 28.7 08/11/2019 11:25 AM [employer] Plan of Treatment Health Maintenance Due Date [...] VACCINE (1 - 2023-2 5 season) 2024 DEPRESSION SCREENING 07/23/2024 INFLUENZA VACCINE (#1) 2025 HIB VACCINE Aged Out No longer [...]
[2025-03-18 14:17] LABS: Hematocrit 43.9 % (42.0-52.0); Hemoglobin 15.0 g/dL (14.0-18.0); Mean Corpuscular HGB Conc 34.2 g/dl (32-36); Mean Corpuscular Hemoglobin 32.7 pg (26-34); Mean Corpuscular Volume 95.6 fl (80-100); Platelet Count Result 160 k/mm3 (150-375); Red Blood Count 4.59 M/mm3 (4.6-6.20); White Blood Count 3.6 K/mm3 (4.5-10.0)
[2025-03-18 15:54] LABS: Alanine Aminotransferase 36 U/L (6-50); Albumin Level 4.3 g/dL (3.5-5.1); Alkaline Phosphatase 37 U/L (38-126); Anion Gap 5 mmol/L (4-12); Aspartate Amino Transferase 42 U/L (17-59); Bilirubin,Total 0.8 mg/dL (0.2-1.3); Blood Urea Nitrogen 14 mg/dL (9-20); Calcium 9.4 mg/dL (8.4-10.2); Carbon Dioxide 29 mmol/L (22-30); Chloride 104 mmol/L (98-107); Cholesterol 191 mg/dL (0-200); Estimated Glomerular Filt Rate > 60; Glucose 81 mg/dL (65-110); HDL Direct 53 mg/dL; Potassium 4.3 mmol/L (3.4-5.0); Sodium 138 mmol/L (137-145); Total Protein 7.0 g/dL (6.3-8.2); Triglycerides 161 mg/dL (<150)
[2025-03-18 16:29] LABS: Thyroid Stimulating Hormone 1.830 uIU/mL (0.465-4.680)
== END 2025-03-18 08:11 | disposition home or self-care (01) ==
LOC: ANHGOSHLAB 08:10
PROVIDERS: PCP Family Medicine; Visit Provider Family Medicine
DX: E78.5 Hyperlipidemia, unspecified (principal); E66.9 Obesity, unspecified; I10 Essential (primary) hypertension
CPT/HCPCS: 36415; 80053; 80061; 84443; 85027

== ENCOUNTER 2025-05-04 18:03 | Emergency (ER) | payer OTHER, SELFPAY ==
[2025-05-04] VITALS (10 sets, daily range): BP systolic 160–179; BP diastolic 100–115; PULSE 71–99; RESP 16–20; TEMP 37.1; O2SAT 96–100
--- NOTE | ~2025-05-04 | CT_ITS ---
CT brain wo con HISTORY:confusion, dizziness, htn, blurry vision COMPARISON: None. TECHNIQUE: Axial images were obtained of the head without intravenous contrast. FINDINGS: No acute intracranial hemorrhage, mass effect or midline shift. No extra-axial fluid collections. The calvarium is intact. Visualized paranasal sinuses and mastoid air cells are clear. IMPRESSION: No acute intracranial hemorrhage or extra axial fluid collections. All CT scans at this facility are performed using low dose modulation techniques as appropriate to perform exam including the following: automated exposure control; use of iterative reconstruction technique; adjustment of the mA and/or kV according to patient size (this includes techniques or standardized protocols for targeted exams where dose is matched to indication/reason for exam). Reviewed, dictated and finalized at location S. IMPRESSION: No acute intracranial hemorrhage or extra axial fluid collections. All CT scans at this facility are performed using low dose modulation techniqu es as appropriate to perform exam including the following: automated exposure c ontrol; use of iterative reconstruction technique; adjustment of the mA and/or kV according to patient size (this includes techniques or standardized protocol s for targeted exams where dose is matched to indication/reason for exam).
--- NOTE | ~2025-05-04 | XR_ITS ---
XR chest 2V HOSTORY: dizziness COMPARISON:[ None] FINDINGS: Frontal and lateral views of the chest were obtained. The lungs are clear. The heart size is normal in size. Pulmonary vasculature is unremarkable. Osseous structures are intact. IMPRESSION: No acute lung findings.] [ ] Reviewed, dictated and finalized at location S.
--- NOTE | 2025-05-04 18:07 | ECG_ITS ---
Test Date: 2025-05-04 18:17:14 Measurements Intervals [place] Rate: 93 P: 47 [place]: 134 QRS: -6 QRSD: 100 T: 34 QT: 341 QTc: 424 Interpretive Statements SINUS RHYTHM WITH SINUS ARRHYTHMIA DELAYED PRECORDIAL R/S TRANSITION BORDERLINE ST-T WAVE ABNORMALITY- INFERIOR LEADS BASELINE ARTIFACT- I, II, AVR, AVL, AVF BORDERLINE ECG Compared to ECG 09/11/2024 12:49:34 No significant changes Electronically Signed On 05-04-2025 19:04:23 CDT by Gary Denton D.O.
--- NOTE | 2025-05-04 18:24 | ED.RECABL ---
HPI - Recheck/Abnormal Lab/Rx General Chief Complaint: Recheck/Abnormal Lab/Rx <MARTIN Mendez Last Filed: 05/04/25 18:33> Stated Complaint: htn <MARTIN Mendez Last Filed: 05/04/25 18:33> Time Seen by Provider: 05/04/25 18:24 <MARTIN Mendez Last Filed: 05/04/25 18:33> Focused HPI: Patient is a 54 y/o male who presents to the ED with c/o dizziness. Patient reports around 530pm tonight he suddenly began feeling flushed, diaphoretic, shaky, palpitations. States he felt dizziness and somewhat confused at that time. His took his BP and states it was elevated to 180s/100s. He then prompted here for further evaluation. reports he has not been acting right. Patient reports slight bilateral blurry vision. Denies CP, SOB. Denies VIEYRA. Denies focal weakness/numbness, trouble walking/speaking. Does have hx of HTN, diagnosed in September. Is on Lisinopril/metoprolol. States his BP typically around 160/100s when he checks it at home. He is unsure if he took his medications this morning. GENERAL: Well-appearing, well-nourished, and in no acute distress. HEAD: Normocephalic, atraumatic. CHEST: Clear to auscultation. ?No respiratory distress. HEART: Regular rate and rhythm.? NEURO: ?Alert and oriented x3. Strength 5 of 5 in upper and lower extremities bilaterally. No pronator drift. Equal insurance underwriter sales strength bilaterally. Eyes PERRLA, EOMI. Patient screened in triage and initial orders placed.? ?Additional care and disposition to be based upon?diagnostic testing and treatment. <MARTIN Mendez Last Filed: 05/04/25 18:33> Source: patient and family <MARTIN Mendez Last Filed: 05/04/25 18:33> Mode of arrival: ambulatory <MARTIN Mendez Last Filed: 05/04/25 18:33> Limitations: no limitations <MARTIN Mendez Last Filed: 05/04/25 18:33> History of Present Illness HPI narrative: I agree with the HPI above. <Cathy Mcpherson APRN - Last Filed: 05/05/25 01:42> Related Data Allergies/Adverse Reactions: Allergies Allergy/AdvReac Type Severity Reaction Status Date / Time No Known Allergies Allergy Verified 05/04/25 18:04 <Jena Sweeney PA-C - Last Filed: 05/04/25 18:33> Review of Systems Review of Systems: All systems reviewed & are unremarkable except as noted in HPI and below <Cathy Mcpherson APRN - Last Filed: 05/05/25 01:42> [facility] Past Medical History Medical History: Medical History Displacement of cervical intervertebral disc without myelopathy Back pain <Jena Sweeney PA-C - Last Filed: 05/04/25 18:33> Surgical History Surgical History: Surgical History Status post medial meniscectomy of right knee (~11/27/23) 2023 History of fusion of cervical spine 2010 2011 <MARTIN Mendez Last Filed: 05/04/25 18:33> Family History Family History: Family History Father Hypertension Cerebrovascular accident, Onset Age: 66 Malignant neoplasm of prostate, Onset Age: 65 Grandparent Family history of cardiovascular disease Sibling Family history of malignant neoplasm <MARTIN Mendez Last Filed: 05/04/25 18:33> Social History Social History: Social History Smoking status: Never smoker Alcohol intake: current Drinks per week: 6 Substance use: never Do You Feel Safe in your Home?: Yes Lack of Transportation: No Lack of Food: Never True Current Housing: I Have Housing Concerned About Future Housing: No Difficulty Paying Gas/Electric Bills: No Difficulty Paying for Meds: No Currently Unemployed: No Education: High School Diploma/GED Difficulty w/ Childcare or Family Care: No Living arrangements: with family Additional living arrangements comments: Gender identity (if verbalized by the patient): Male Spiritual care concerns: No <MARTIN Mendez Last Filed: 05/04/25 18:33> Course Vital Signs Vital signs: Vital Signs Temperature 37.1 C 05/04/25 18:12 Pulse Rate 99 05/04/25 18:12 Respiratory Rate 16 05/04/25 18:12 Blood Pressure 179/111 H 05/04/25 18:12 Pulse Oximetry 98 05/04/25 18:12 Oxygen Delivery Room Air 05/04/25 18:12 Temperature 37.1 C 05/04/25 18:12 Pulse Rate 69 05/05/25 01:05 Respiratory Rate 18 05/05/25 01:05 Blood Pressure 153/108 H 05/05/25 01:05 Pulse Oximetry 99 05/05/25 01:05 Oxygen Delivery Room Air 05/04/25 21:17 <MARTIN Mendez Last Filed: 05/04/25 18:33> Vital Signs Temperature 37.1 C 05/04/25 18:12 Pulse Rate 99 05/04/25 18:12 Respiratory Rate 16 05/04/25 18:12 Blood Pressure 179/111 H 05/04/25 18:12 Pulse Oximetry 98 05/04/25 18:12 Oxygen Delivery Room Air 05/04/25 18:12 Temperature 37.1 C 05/04/25 18:12 Pulse Rate 69 05/05/25 01:05 Respiratory Rate 18 05/05/25 01:05 Blood Pressure 153/108 H 05/05/25 01:05 Pulse Oximetry 99 05/05/25 01:05 Oxygen Delivery Room Air 05/04/25 21:17 <Cathy Mcpherson APRN - Last Filed: 05/05/25 01:42> MDM - Recheck/Abnormal Lab/Rx MDM Narrative Medical decision making narrative: MSE by SERGEI in triage. <MARTIN Mendez Last Filed: 05/04/25 18:33> MSE by SERGEI in triage. Patient is a 54 y/o male who presents to the ED with c/o dizziness. Patient reports around 530pm tonight he suddenly began feeling flushed, diaphoretic, shaky, palpitations. States he felt dizziness and somewhat confused at that time. His took his BP and states it was elevated to 180s/100s. He then prompted here for further evaluation. reports he has not been acting right. Patient reports slight bilateral blurry vision. Denies CP, SOB. Denies VIEYRA. Denies focal weakness/numbness, trouble walking/speaking. Does have hx of HTN, diagnosed in September. Is on Lisinopril/metoprolol. States his BP typically around 160/100s when he checks it at home. He is unsure if he took his medications this morning. * Patient reports he recently had right knee replacement surgery. He denies any history of diabetes. Labs Ordered: CBC, CMP, PTT, INR, troponin, D-dimer Imaging Ordered: CT brain, chest x-ray, CTA head neck Medications Ordered: None necessary Results: Patient's CT brain scan indicates no acute abnormalities. His blood work results were within normal limits. MDM: * Patient's reports when he had his episode earlier today his face turned bright red and he was confused. It was advised patient have a CTA head neck scan performed d/t his high blood pressure and abnormal symptoms. 0100-Patient has chosen to refuse further care. Risks of an incomplete evaluation and treatment were discussed with the patient, including potential for or permanent disability. Patient seems to understand these risks, but still desires to refuse further care. Patient recommended to follow up with PCP in the next possible interval. Specifically, patient was told they can return to the ED at any time to resume care. <Cathy Mcpherson APRN - Last Filed: 05/05/25 01:42> Lab Data Result diagrams: 05/04/25 18:33 05/04/25 18:33 <Jena Sweeney PA-C - Last Filed: 05/04/25 18:33> Labs: Lab Results 05/04/25 05/04/25 05/04/25 Range/Units 18:15 18:33 21:19 WBC 6.7 (4.5-10.0) K/mm3 RBC 4.37 L (4.6-6.20) M/mm3 Hgb 14.3 (14.0-18.0) g/dL Hct 40.8 L (42.0-52.0) % MCV 93.4 (80-100) fl MCH 32.7 (26-34) pg MCHC 35.0 (32-36) g/dl RDW 12.1 (11.5-14.5) % Plt Count 190 (150-375) k/mm3 MPV 10.9 H (7.4-10.4) fl Immature Gran % (Auto) 0.1 (0-0.5) % Neut % (Auto) 70.0 (45.5-73.1) % Lymph % (Auto) 18.7 (18.3-44.2) % [place] % (Auto) 9.1 H (2.6-8.5) % Eos % (Auto) 1.5 (0-4.4) % Baso % (Auto) 0.6 (0.2-1.2) % Lymph # (Auto) 1.25 (0.9-3.2) K/mm3 [place] # (Auto) 0.6 (0.1-0.6) K/mm3 Eos # (Auto) 0.1 (0-0.3) K/mm3 Baso # (Auto) 0.0 (0.0-0.1) K/mm3 Abs Immat Gran (auto) 0.01 (0.00-0.031) K/mm3 Absolute Neuts (auto) 4.7 (1.3-6.7) K/mm3 Absolute Nucleated RBC 0.000 (0.0-0.012) K/mm3 Nucleated RBC % 0.0 (0.0-0.2) % PT 13.4 (11.1-14.7) Seconds INR 1.0 APTT 28.7 (22.3-36.8) Seconds D-Dimer 0.42 (<0.48) ug/mL Sodium 139 (137-145) mmol/L Potassium 4.0 (3.4-5.0) mmol/L Chloride 104 (98-107) mmol/L Carbon Dioxide 26 (22-30) mmol/L Anion Gap 9 (4-12) mmol/L BUN 15 (9-20) mg/dL Creatinine 1.19 (0.7-1.3) mg/dL Estim Creat Clear Calc 65 ml/min Estimated GFR > 60 (59 - ) Glucose 105 (65-110) mg/dL POC Capillary Glucose 114 H (65-105) mg/dl Calcium 9.4 (8.4-10.2) mg/dL Total Bilirubin 0.8 (0.2-1.3) mg/dL AST 38 (17-59) U/L ALT 33 (6-50) U/L Alkaline Phosphatase 37 L (38-126) U/L Troponin I < 0.012 < 0.012 (0.000-0.034) ng/mL Total Protein 7.5 (6.3-8.2) g/dL Albumin 4.5 (3.5-5.1) g/dL <Jean Sweeney PA-C - Last Filed: 05/04/25 18:33> Lab Results 05/04/25 05/04/25 05/04/25 Range/Units 18:15 18:33 21:19 WBC 6.7 (4.5-10.0) K/mm3 RBC 4.37 L (4.6-6.20) M/mm3 Hgb 14.3 (14.0-18.0) g/dL Hct 40.8 L (42.0-52.0) % MCV 93.4 (80-100) fl MCH 32.7 (26-34) pg MCHC 35.0 (32-36) g/dl RDW 12.1 (11.5-14.5) % Plt Count 190 (150-375) k/mm3 MPV 10.9 H (7.4-10.4) fl Immature Gran % (Auto) 0.1 (0-0.5) % Neut % (Auto) 70.0 (45.5-73.1) % Lymph % (Auto) 18.7 (18.3-44.2) % [place] % (Auto) 9.1 H (2.6-8.5) % Eos % (Auto) 1.5 (0-4.4) % Baso % (Auto) 0.6 (0.2-1.2) % Lymph # (Auto) 1.25 (0.9-3.2) K/mm3 [place] # (Auto) 0.6 (0.1-0.6) K/mm3 Eos # (Auto) 0.1 (0-0.3) K/mm3 Baso # (Auto) 0.0 (0.0-0.1) K/mm3 Abs Immat Gran (auto) 0.01 (0.00-0.031) K/mm3 Absolute Neuts (auto) 4.7 (1.3-6.7) K/mm3 Absolute Nucleated RBC 0.000 (0.0-0.012) K/mm3 Nucleated RBC % 0.0 (0.0-0.2) % PT 13.4 (11.1-14.7) Seconds INR 1.0 APTT 28.7 (22.3-36.8) Seconds D-Dimer 0.42 (<0.48) ug/mL Sodium 139 (137-145) mmol/L Potassium 4.0 (3.4-5.0) mmol/L Chloride 104 (98-107) mmol/L Carbon Dioxide 26 (22-30) mmol/L Anion Gap 9 (4-12) mmol/L BUN 15 (9-20) mg/dL Creatinine 1.19 (0.7-1.3) mg/dL Estim Creat Clear Calc 65 ml/min Estimated GFR > 60 (59 - ) Glucose 105 (65-110) mg/dL POC Capillary Glucose 114 H (65-105) mg/dl Calcium 9.4 (8.4-10.2) mg/dL Total Bilirubin 0.8 (0.2-1.3) mg/dL AST 38 (17-59) U/L ALT 33 (6-50) U/L Alkaline Phosphatase 37 L (38-126) U/L Troponin I < 0.012 < 0.012 (0.000-0.034) ng/mL Total Protein 7.5 (6.3-8.2) g/dL Albumin 4.5 (3.5-5.1) g/dL <Cathy Mcpherson APRN - Last Filed: 05/05/25 01:42> Discharge Plan Discharge Clinical Impression: Hypertension <Jena Sweeney PA-C - Last Filed: 05/04/25 18:33> Patient Disposition: Left Against Medical Advice <Jena Sweeney PA-C - Last Filed: 05/04/25 18:33> Condition: Stable <MARTIN Mendez Last Filed: 05/04/25 18:33> Patient Language: Beninese <MARTIN Mendez Last Filed: 05/04/25 18:33> Prescriptions: No Action metoprolol succinate 25 mg tablet extended release 24 hr 25 mg PO DAILY Qty: 90 1RF lisinopril 40 mg tablet 40 mg PO DAILY Qty: 90 1RF Patient Comments: QAM clotrimazole-betamethasone 1-0.05 % cream 1 applic topical BID Qty: 45 4RF <MARTIN Mendez Last Filed: 05/04/25 18:33> Follow-up/Referrals: Zara Gonzalez DO [Primary Care Provider, Family Practice] <MARTIN Mendez Last Filed: 05/04/25 18:33>
[2025-05-04 18:39] LABS: Hematocrit 40.8 % (42.0-52.0); Hemoglobin 14.3 g/dL (14.0-18.0); Immature Granulocyte Percent A 0.1 % (0-0.5); Lymphocytes Absolute Auto 1.25 K/mm3 (0.9-3.2); Mean Corpuscular HGB Conc 35.0 g/dl (32-36); Mean Corpuscular Hemoglobin 32.7 pg (26-34); Mean Corpuscular Volume 93.4 fl (80-100); Nucleated Red Blood Cells Absolute Auto 0.000 K/mm3 (0.0-0.012); Nucleated Red Blood Cells Perc 0.0 % (0.0-0.2); Platelet Count Result 190 k/mm3 (150-375); Red Blood Count 4.37 M/mm3 (4.6-6.20); White Blood Count 6.7 K/mm3 (4.5-10.0)
[2025-05-04 18:52] LABS: Alanine Aminotransferase 33 U/L (6-50); Albumin Level 4.5 g/dL (3.5-5.1); Alkaline Phosphatase 37 U/L (38-126); Anion Gap 9 mmol/L (4-12); Aspartate Amino Transferase 38 U/L (17-59); Bilirubin,Total 0.8 mg/dL (0.2-1.3); Blood Urea Nitrogen 15 mg/dL (9-20); Calcium 9.4 mg/dL (8.4-10.2); Carbon Dioxide 26 mmol/L (22-30); Chloride 104 mmol/L (98-107); Estimated CRCL calculation 65 ml/min; Estimated Glomerular Filt Rate > 60; Glucose 105 mg/dL (65-110); INR 1.0; Partial Thromboplastin Time 28.7 Seconds (22.3-36.8); Potassium 4.0 mmol/L (3.4-5.0); Prothrombin Time 13.4 Seconds (11.1-14.7); Sodium 139 mmol/L (137-145); Total Protein 7.5 g/dL (6.3-8.2)
[2025-05-04 19:05] LABS: Troponin I < 0.012 ng/mL (0.000-0.034)
--- NOTE | 2025-05-04 21:17 | ECG_ITS ---
Test Date: 2025-05-04 21:20:03 Measurements Intervals [place] Rate: 72 P: 41 AR: 151 QRS: -1 QRSD: 92 T: 23 QT: 369 QTc: 405 Interpretive Statements SINUS RHYTHM DELAYED PRECORDIAL R/S TRANSITION BASELINE ARTIFACT- I, II, III, AVR, AVL BORDERLINE ECG Compared to ECG 05/04/2025 18:17:14 Sinus arrhythmia no longer present Electronically Signed On 05-05-2025 05:31:42 CDT by Gary Denton D.O.
[2025-05-04 21:45] LABS: Troponin I < 0.012 ng/mL (0.000-0.034)
[2025-05-05 00:15] VITALS: BP 172/94; PULSE 65
[2025-05-05 00:17] VITALS: BP 157/105; PULSE 64
[2025-05-05 00:18] VITALS: BP 154/101; PULSE 71
--- NOTE | 2025-05-05 01:03 | PC.NURSE ---
Pt states he is not wanting to wait for his CT scan to be done. Pt is made aware of risks of leaving AMA and states he will return if anything worsens but still wants to leave AMA. Pt is A&Ox4 and ambulatory to exit with no difficulties. HR- 69, O2-99% on RA, and bp- 153/108.
[2025-05-05 01:05] VITALS: BP 153/108; PULSE 69; RESP 18; O2SAT 99
== END 2025-05-05 01:06 | disposition left against medical advice (07) ==
LOC: ANHED 23:36
PROVIDERS: Physician Assistant; Emergency Provider Registered Nurse; PCP Family Medicine
DX: I10 Essential (primary) hypertension (principal)
CPT/HCPCS: 36415; 70450; 71046; 80053; 82948; 84484; 85025; 85380; 85610; 85730; 93005; 99284

== ENCOUNTER 2025-05-13 10:18 | Outpatient (CLI) | payer OTHER, SELFPAY ==
--- NOTE | ~2025-05-13 | US_ITS ---
Clinical History: I10 - Essential (primary) hypertension Examination: US carotid duplex BI Comparison: None Technique: Grayscale, color, duplex/spectral Doppler sonography carotid and vertebral arteries. Distal CCA and Peak ICA systolic velocities provided. Society of Radiologists in Ultrasound (SRU) consensus criteria utilized, indirectly assessing stenosis by velocities. Findings: Minimal plaque Right side: CCA - 59 cm/sec. ICA - 39 cm/sec. ICA/CCA - 0.7 Left Side: CCA - 64 cm/sec. ICA - 47 cm/sec. ICA/CCA - 0.7 Normal antegrade flow measured bilateral vertebral arteries. IMPRESSION: 1. No hemodynamically significant ICA stenosis (i.e., if any stenosis, less than 50%). 2. Normal bilateral antegrade vertebral artery flow. Stenosis measured by Society of Radiologists in Ultrasound (SRU) criteria. Reviewed, dictated and finalized at location R. IMPRESSION: 1. No hemodynamically significant ICA stenosis (i.e., if any stenosis, less th an 50%). 2. Normal bilateral antegrade vertebral artery flow. Stenosis measured by Society of Radiologists in Ultrasound (SRU) criteria.
== END 2025-05-13 10:19 | disposition home or self-care (01) ==
LOC: MICIMG 10:18
PROVIDERS: PCP Family Medicine; Visit Provider Family Medicine
DX: I10 Essential (primary) hypertension (principal)
CPT/HCPCS: 93880